=== PATIENT | female | born 1995 | race Two or more races ===

== ENCOUNTER 2018-08-07 20:01 | Emergency (ER) | payer OTHER ==
[~2018-08-07] VITALS: Ht 160 cm; Wt 76.4 kg
[2018-08-07 20:48] LABS: ABG BASE EXCESS -2.8 (-2.0-2.0); ABG HCO3 21.3 MEQ/L (22.0-26.0); ABG O2 SATURATION 98.3 % (95.0-99.0); ABG PARTIAL PRESSURE CO2 34.8 mmHg (35.0-45.0); ABG PARTIAL PRESSURE O2 123.1 mmHg (75.0-100.0); ABG STANDARD HCO3 22.2 MEQ/L (22.0-26.0); ABG TOTAL CO2 22.3 MEQ/L (22.0-29.0); ABG pH (ARTERIAL) 7.404 UNITS (7.350-7.450)
[2018-08-07 21:30] VITALS: BP 122/74
--- NOTE | 2018-08-07 22:06 | ECGEPIP ---
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
== END 2018-08-07 21:47 | disposition home or self-care (01) ==
LOC: M ED 20:01
DX: F15.10 Other stimulant abuse, uncomplicated (principal); R07.9 Chest pain, unspecified; G43.909 Migraine, unspecified, not intractable, without status migrainosus; Z88.0 Allergy status to penicillin
CPT/HCPCS: 36600; 82803; 93005; 99284; G0463

== ENCOUNTER → 2019-04-30 | Outpatient (CLI) | payer OTHER ==
[2019-04-30 12:54] LABS: BASO % 0.5 % (0.0-1.0); EOS # 0.1 10^3/uL (0.0-0.5); EOS % 1.2 % (0.0-3.0); HEMATOCRIT 41.4 % (36.0-47.0); HEMOGLOBIN 13.1 g/dl (12.0-15.5); LYMPH # 2.3 10^3/uL (1.5-5.0); MEAN CORPUSCULAR HEMOGLOBIN 28.4 pg (27.0-33.0); MEAN CORPUSCULAR HGB CONC 31.6 g/dl (32.0-36.5); MEAN CORPUSCULAR VOLUME 89.8 fl (80.0-96.0); MONO # 0.4 10^3/uL (0.0-0.8); MONO % 7.4 % (0.0-5.0); NEUTROPHILS # 3.1 10^3/uL (1.5-8.5); NEUTROPHILS % 51.6 % (36.0-66.0); PLATELET COUNT, AUTOMATED 339 10^3/uL (150-450); RED BLOOD COUNT 4.61 10^6/uL (4.00-5.40)
[2019-04-30 12:59] LABS: BLOOD UREA NITROGEN 11 MG/DL (7-18); CARBON DIOXIDE LEVEL 25 MEQ/L (21-32); CHLORIDE LEVEL 108 MEQ/L (98-107); CREATININE FOR GFR 0.64 MG/DL (0.55-1.30); FREE T4 0.92 NG/DL (0.76-1.46); GLOMERULAR FILTRATION RATE > 60.0 (>60); GLUCOSE, FASTING 83 MG/DL (70-100); POTASSIUM SERUM 4.6 MEQ/L (3.5-5.1); PROGESTERONE 27.33 NG/ML; SODIUM LEVEL 141 MEQ/L (136-145)
== END ==
LOC: M LRY 09:07
PROVIDERS: ATTEND Physician Assistant
DX: Z32.01 Encounter for pregnancy test, result positive (principal)

== ENCOUNTER → 2019-10-11 | Outpatient (CLI) | payer OTHER ==
[2019-10-11 16:08] LABS: HEMATOCRIT 35.6 % (36.0-47.0); HEMOGLOBIN 11.3 g/dl (12.0-15.5); MEAN CORPUSCULAR HEMOGLOBIN 29.4 pg (27.0-33.0); MEAN CORPUSCULAR HGB CONC 31.7 g/dl (32.0-36.5); MEAN CORPUSCULAR VOLUME 92.7 fl (80.0-96.0); PLATELET COUNT, AUTOMATED 281 10^3/uL (150-450); RED BLOOD COUNT 3.84 10^6/uL (4.00-5.40); WHITE BLOOD COUNT 7.9 10^3/uL (4.0-10.0)
== END ==
LOC: M LRY 10:46
PROVIDERS: ATTEND Midwife
DX: Z34.80 Encounter for supervision of other normal pregnancy, unspecified trimester (principal)

== ENCOUNTER → 2020-10-16 | Outpatient (CLI) | payer OTHER ==
[2020-10-16 10:53] LABS: BASO % 0.4 % (0.0-1.0); EOS # 0.1 10^3/uL (0.0-0.5); EOS % 1.1 % (0.0-3.0); HEMATOCRIT 41.4 % (36.0-47.0); HEMOGLOBIN 13.3 g/dl (12.0-15.5); LYMPH # 2.4 10^3/uL (1.5-5.0); LYMPH % 32.1 % (24.0-44.0); MEAN CORPUSCULAR HEMOGLOBIN 28.3 pg (27.0-33.0); MEAN CORPUSCULAR HGB CONC 32.1 g/dl (32.0-36.5); MEAN CORPUSCULAR VOLUME 88.1 fl (80.0-96.0); MONO # 0.6 10^3/uL (0.0-0.8); MONO % 8.4 % (2.0-8.0); NEUTROPHILS # 4.3 10^3/uL (1.5-8.5); NEUTROPHILS % 57.7 % (36.0-66.0); PLATELET COUNT, AUTOMATED 386 10^3/uL (150-450); WHITE BLOOD COUNT 7.5 10^3/uL (4.0-10.0)
[2020-10-16 11:24] LABS: HEMOGLOBIN A1c 5.7 %
[2020-10-16 11:36] LABS: FREE T4 0.83 NG/DL (0.76-1.46); THYROID STIMULATING HORMONE 0.673 uIU/ML (0.358-3.740)
== END ==
LOC: M PLALAB 08:59
PROVIDERS: ATTEND Family Medicine
DX: Z13.29 Encounter for screening for other suspected endocrine disorder (principal); Z13.0 Encounter for screening for diseases of the blood and blood-forming organs and certain disorders involving the immune mechanism

== ENCOUNTER → 2020-10-27 | Outpatient (CLI) | payer OTHER ==
--- NOTE | 2020-10-27 17:07 | REP ---
INDICATION: GOITER. COMPARISON: None. TECHNIQUE: Real-time sonographic evaluation of thyroid performed. FINDINGS: Both lobes of the thyroid are normal in size, right lobe measuring 4.9 x 1.4 x 1.5 cm and left lobe 4.6 x 1.4 x 1.3 cm. Homogeneous echotexture is visualized bilaterally. No discrete cystic or solid nodule is seen bilaterally. IMPRESSION: Negative thyroid ultrasound. <Electronically signed by Harley Hercules > 10/27/20 1207
== END ==
LOC: M RAD 16:28
PROVIDERS: ATTEND Family Medicine
DX: E04.1 Nontoxic single thyroid nodule (principal)

== ENCOUNTER → 2020-12-22 | Outpatient (CLI) | payer OTHER | LOC: M PLAIMG 08:26 | PROVIDERS: ATTEND Physician Assistant | DX: F45.8 Other somatoform disorders (principal) ==

== ENCOUNTER → 2021-01-13 | Outpatient (CLI) | payer OTHER | LOC: M LAB 08:40 | PROVIDERS: ATTEND Surgery | DX: R73.03 Prediabetes (principal) ==

== ENCOUNTER → 2021-04-29 | Outpatient (REF) | payer OTHER | LOC: M LAB REF 17:11 | PROVIDERS: ATTEND Physician Assistant | DX: J06.9 Acute upper respiratory infection, unspecified (principal) ==